=== PATIENT | male | born 1950 | race Caucasian/White ===

== ENCOUNTER 2016-06-04 11:28 | Emergency (ER) | payer MEDICARE ==
[~2016-06-04] VITALS: Ht 180.3 cm; Wt 85.0 kg
[2016-06-04 11:30] VITALS: BP 131/68; PULSE 104; RESP 14; TEMP 98; O2SAT 94
[2016-06-04] MEDS ORDERED: CABE0.5T PO (12:11)
[2016-06-04] MEDS ORDERED: AMLO10TA2 PO (12:11)
[2016-06-04] MEDS ORDERED: SIMV20TA PO (12:11)
[2016-06-04] MEDS ORDERED: METH5TAB4 PO (12:11)
[2016-06-04] MEDS ORDERED: LOSA50TA PO (12:11)
[2016-06-04] MEDS ORDERED: FENT25DI T-DERMAL (12:11)
[2016-06-04] MEDS ORDERED: TERA5CAP3 PO (12:12)
[2016-06-04] MEDS ORDERED: OXYC-396 PO (12:12)
--- NOTE | 2016-06-04 13:00 | PD ---
HPI Chief Complaint: Back/ Neck Pain or Injury Time Seen by Provider: 12:59 Travel History International Travel<30 days: No Contact w/Intl Traveler<30days: No Traveled to known affect area: No History of Present Illness HPI 66-year-old male presents the emergency Department with acute exacerbation of chronic low back pain. Patient states she just moved here from [place]. Patient has a history of chronic low back pain treated with fentanyl and oxycodone the past. Patient denies any specific injury history other than the recent travel. Patient denies fever, chills, weakness, changes in bowel or bladder. He is allergic to penicillin. PFSH Past Medical History COPD: Yes Hypertension: Yes Tetanus Vaccination: < 5 Years Social History Alcohol Use: No Tobacco Use: Yes Substance Use: No Allergies-Medications (Allergen,Severity, Reaction): Coded Allergies: Penicillin (Verified Allergy, Unknown, 06/04/16) Reported Meds & Prescriptions Reported Meds & Active Scripts Active Reported Terazosin (Terazosin HCl) 5 Mg Cap 5 Mg PO HS Oxycodone (Oxycodone HCl) 20 Mg Tab 20 Mg PO Q6H PRN Cabergoline 0.5 Mg Tab 0.5 Mg PO 2XWEEK Methimazole 5 Mg Tab 5 Mg PO DAILY Simvastatin 20 Mg Tab 20 Mg PO DAILY Losartan (Losartan Potassium) 50 Mg Tab 50 Mg PO DAILY Amlodipine (Amlodipine Besylate) 10 Mg Tab 10 Mg PO DAILY Fentanyl Patch 72 HR (Fentanyl) 25 Mcg/Hr Patch 25 Mcg T-DERMAL Q72H Review of Systems Except as stated in HPI: all other systems reviewed are Neg General / Constitutional: No: Fever Eyes: No: Visual changes HENT: No: Headaches Cardiovascular: No: Chest Pain or Discomfort Respiratory: No: Shortness of Breath Gastrointestinal: No: Abdominal Pain Genitourinary: No: Dysuria Musculoskeletal: No: Pain Skin: No Rash Neurologic: No: Weakness Psychiatric: No: Depression Endocrine: No: Polydipsia Hematologic/Lymphatic: No: Easy Bruising Physical Exam Narrative GENERAL: Patient appears in mild distress. SKIN: Warm and dry. Normal color. Normal turgor. HEAD: Atraumatic. Normocephalic. EYES: Pupils equal and round. No scleral icterus. No injection or drainage. ENT: No nasal bleeding or discharge. Mucous membranes pink and moist. Pharynx is clear. NECK: Trachea midline. Neck is supple nontender. CARDIOVASCULAR: Regular rate and rhythm. RESPIRATORY: No accessory muscle use. Clear to auscultation. Breath sounds equal bilaterally. GASTROINTESTINAL: Abdomen soft, non-tender, nondistended. Hepatic and splenic margins not palpable. MUSCULOSKELETAL: Extremities without clubbing, cyanosis, or edema. No obvious deformities. Patient is tenderness with palpation along the left lower lumbar spine into the left sciatic notch. Patient is able to stand and ambulate. Mild left straight leg raise pain at 40. No weakness or decreased deep tendon reflexes in the lower extremities.. NEUROLOGICAL: Awake and alert. No obvious cranial nerve deficits. Motor grossly within normal limits. Five out of 5 muscle strength in the arms and legs. Normal speech. PSYCHIATRIC: Appropriate mood and affect; insight and judgment normal. Data Data Last Documented VS Vital Signs Date Time Temp Pulse Resp B/P Pulse Ox O2 Delivery O2 Flow Rate FiO2 06/04/16 11:30 98.0 104 14 131/68 94 Room Air MDM Medical Decision Making Medical Screen Exam Complete: Yes Emergency Medical Condition: Yes Differential Diagnosis Acute on chronic low back pain. Sciatica. Drug-seeking behavior. Narrative Course Patient is medically stable at time of exam. I explained patient's chronic narcotic medications will not be refilled here in the emergency department. Patient given prednisone 20 mg twice a day 5 days. Patient is given Flexeril 10 mg 3 times a day #15. Patient is to continue his other meds as previous. Patient should follow-up will pain clinic for any further chronic narcotic medications. Patient can return to emergency Department with worsening symptoms if necessary. Diagnosis Primary Impression: Sciatic leg pain Referrals: Pain Management Patient Instructions: General Instructions, Sciatica (ED) Additional Instructions: Patient is medically stable at time of exam. I explained patient's chronic narcotic medications will not be refilled here in the emergency department. Patient given prednisone 20 mg twice a day 5 days. Patient is given Flexeril 10 mg 3 times a day #15. Patient is to continue his other meds as previous. Patient should follow-up will pain clinic for any further chronic narcotic medications. Patient can return to emergency Department with worsening symptoms if necessary. Med/Other Pt SpecificInfo: Prescription(s) given Scripts Prednisone 20 Mg Tab20 Mg PO BID #10 TAB Prov:Erica Byrd MD 06/04/16 Cyclobenzaprine (Flexeril)10 Mg Tab10 Mg PO TID #15 TAB Prov:Erica Byrd MD 06/04/16 Disposition: 01 DISCHARGE HOME Condition: Stable Uche Adkins Jun 04, 2016 13:00
[2016-06-04] MEDS ORDERED: CYCL1TAB29 PO (13:04)
[2016-06-04] MEDS ORDERED: PRED20 PO (13:04)
== END 2016-06-04 13:13 | disposition home or self-care (01) ==
LOC: NEPB 11:28
DX: M54.32 Sciatica, left side (principal); G89.29 Other chronic pain; M79.605 Pain in left leg; I10 Essential (primary) hypertension; J44.9 Chronic obstructive pulmonary disease, unspecified; Z72.0 Tobacco use
CPT/HCPCS: 99282